=== PATIENT | female | born 1975 | race Caucasian/White ===

== ENCOUNTER 2017-12-21 06:19 | Day surgery (SDC) | payer MEDICARE, MEDICAID ==
[~2017-12-21 06:19] MED LIST: Acetaminophen TAB* 325 MG PO PRN; Buffered Lidocaine 0.9% SYRIN* 5 ML/SYR SYRINGE INTRADERM ONE
[2017-12-21] MEDS ORDERED: Lidocaine 1% INJ* 10 MG/ML 30 ML SDV ONE (07:15)
[2017-12-21] MEDS ORDERED: Levalbuterol 0.63MG/3ML NEB* UNIT OF USE INH ONE (07:16)
[2017-12-21] MEDS ORDERED: Propofol* 10 MG/ML 20 ML BTL IV PUSH ONE (07:19)
[2017-12-21] MEDS ORDERED: Lidocaine 2% PF * 5 ML VIAL ONE (07:22)
[2017-12-21] MEDS ORDERED: Lidocaine 1%* 5 ML VIAL ONE (07:27)
[2017-12-21] MEDS ORDERED: Naloxone* 0.4 MG/ML 1 ML VIAL IV PRN (08:00)
[2017-12-21 08:24] VITALS: BP 134/91
--- NOTE | 2017-12-22 02:37 | OP ---
DATE OF OPERATION: 12/21/17 [facility] DATE OF : 73 SURGEON: Heather Guo MD [facility]SA COORDINATOR: GUSTAVO Moura ANESTHESIA: Local MAC. PRE-OP DIAGNOSIS: Left carpal tunnel syndrome. POST-OP DIAGNOSIS: Left carpal tunnel syndrome. OPERATIVE PROCEDURE: Left carpal tunnel release. ESTIMATED BLOOD LOSS: Zero. TOURNIQUET TIME: About 10 minutes. INDICATIONS FOR PROCEDURE: Tonie is a 42-year-old female with numbness and tingling in the median nerve distribution of her left hand. She presents for left carpal tunnel release. DESCRIPTION OF PROCEDURE: The patient was brought to the operating room, was given a sedation anesthetic and a local infiltration of 10 cc of 1% plain lidocaine in the palm of her left hand. The skin of her left hand and forearm was prepped and draped in the usual sterile fashion. The hand and forearm were exsanguinated and the tourniquet elevated to 250 mmHg. A longitudinal incision was made in the palm in line with the ring finger. We dissected sharply through the subcutaneous tissue down to the transverse carpal ligament. The ligament was divided sharply with a knife and then more proximally with the scissors. The nerve was dissected free from the surrounding tissue and there was an area of moderate compression at the mid portion of the ligament. The wound was irrigated and the skin edges were re- approximated with 4-0 nylon suture. The wound was dressed with Xeroform, 4x4, Webril, and an Ravi wrap. The patient tolerated the procedure well and was brought to the recovery room in good condition. [id number]/[facility] #: [id number] [facility] MED[facility] CENTERDeven
== END 2017-12-21 08:39 | disposition home or self-care (01) ==
LOC: OREAST 06:19
PROVIDERS: ATTEND Orthopaedic Surgery
DX: G56.02 Carpal tunnel syndrome, left upper limb (principal); I10 Essential (primary) hypertension; J44.9 Chronic obstructive pulmonary disease, unspecified; Z72.0 Tobacco use; G47.33 Obstructive sleep apnea (adult) (pediatric); Z95.2 Presence of prosthetic heart valve; I27.20 Pulmonary hypertension, unspecified
CPT/HCPCS: 81025; J2704

== ENCOUNTER 2018-02-15 06:49 | Day surgery (SDC) | payer MEDICARE, MEDICAID ==
--- NOTE | 2018-02-03 08:31 | HP ---
PREOP HISTORY AND PHYSICAL: DATE OF ADMISSION: 02/15/18 CHIEF COMPLAINT: Numbness and tingling in the right hand. HISTORY OF PRESENT ILLNESS: Tonie is a 42-year-old female, who has numbness and tingling in her right hand for several weeks. She has had a successful nerve decompression of the left, presents now for the same on the right. The ulnar nerve is compressed at the elbow and the wrist and the median nerve compressed at the wrist. She does not get any relief from medication or bracing. She rates her pain as 8/10. PAST MEDICAL HISTORY: Positive for hypertension, heart disease, COPD, asthma, arthritis, depression, anxiety, history of alcohol addiction. PAST SURGICAL HISTORY: Heart valve repair, left ankle reconstruction, wrist surgery, and ulnar nerve and median nerve release on the left side. FAMILY HISTORY: Heart disease and cancer. SOCIAL HISTORY: She lives with her spouse, is currently on disability. She smokes a pack of cigarettes a day for 30 years. She admits to drinking a 12 pack of beer per day. REVIEW OF SYSTEMS: She has a review of systems positive for shortness of breath due to COPD, chronic low back pain, history of fracture, weakness, depression and anxiety. PHYSICAL EXAMINATION GENERAL: She is a 42-year-old woman, in minimal distress at rest. VITAL SIGNS: Her height is 64 inches, weight is 220 pounds. Pulse is 92, respirations are 18. HEENT: She has good range of motion of her neck without pain. No masses are palpated. Her eye movements are concentric. LUNGS: Clear to auscultation today. Good inspiratory effort. No wheezing. CARDIAC: Regular rate and rhythm without murmur. PERIPHERAL VASCULAR: She has palpable pulses and no peripheral edema. EXTREMITIES: She has decreased sensation in the median and ulnar nerve distribution of her right hand. Positive Tinel sign of the ulnar nerve at the wrist and the elbow as well as the median nerve at the wrist. NEUROLOGICAL: She is alert and oriented without focal deficit. IMPRESSION: Carpal tunnel syndrome and ulnar nerve compression of the right elbow and wrist. PLAN: Plan is for right carpal tunnel release and ulnar nerve decompression of the wrist as well as an ulnar nerve decompression of the right elbow. The surgical procedure, risks and benefits were explained to the patient today and she agrees to proceed. I will see her back in followup approximately 10 days postop. [id number]/[facility] #: [id number] IDALIA
[~2018-02-15 06:49] MED LIST changes: -Acetaminophen TAB* 325 MG PO PRN; +Dexamethasone IV* 4 MG/ML 1 ML (4 MG) IV SLOW PU ONE; +Dexamethasone TAB* 4 MG ONE; +DiMENhydriNATE IV* 50 MG/ML VIAL IV PUSH PRN; +Famotidine IV* 10 MG/ML 2 ML (20 mg) IV ONE; +Famotidine IV* 10 MG/ML 2 ML (20 mg) ONE; +Levalbuterol 0.63MG/3ML NEB* UNIT OF USE INH ONE; +Naloxone* 0.4 MG/ML 1 ML VIAL IV PRN; +Ondansetron ODT TAB* 4 MG ONE; +Ondansetron TAB* 4 MG PO ONE; +PROCHLORPERAZINE INJ 5 MG/ML 2 ML VIAL IV PRN; +fentaNYL* 50 MCG/ML 2 ML VIAL (100 MCG VIAL) IV PRN; +oxyCODONE/Acetamin 5/325 MG* TAB PO PRN
[2018-02-15] MEDS ORDERED: ceFAZolin 2 GM PREMIX in ORs 2 GM/50 ML BAG IVPB ONE (07:02)
[2018-02-15] MEDS ORDERED: Dexamethasone IV* 4 MG/ML 1 ML (4 MG) ONE (07:30)
[2018-02-15] MEDS ORDERED: fentaNYL* 50 MCG/ML 2 ML VIAL (100 MCG VIAL) ONE (07:47)
[2018-02-15] MEDS ORDERED: Midazolam* 1 MG/ML 5 ML VIAL (5 MG) ONE (07:47)
[2018-02-15] MEDS ORDERED: KETAMINE HCL* 50 MG/ML 10 ML VIAL ONE (07:47)
[2018-02-15] MEDS ORDERED: Lidocaine 1% INJ* 10 MG/ML 30 ML SDV ONE (08:01)
[2018-02-15] MEDS ORDERED: Propofol* 10 MG/ML 20 ML BTL ONE (08:57)
[2018-02-15] MEDS ORDERED: Lidocaine 2% PF * 5 ML VIAL ONE (08:57)
[2018-02-15 09:55] VITALS: BP 161/96
--- NOTE | 2018-02-15 15:43 | OP ---
DATE OF OPERATION: 02/15/18 - [facility] DATE OF : 73 SURGEON: Heather Guo MD TIN TIE MACHINE OPERATOR AUTOMATIC: Preeti Adams. ANESTHESIA: Local MAC. PRE-OP DIAGNOSES: 1. Ulnar nerve compression at the right elbow. 2. Median nerve compression at the right wrist. POST-OP DIAGNOSES: 1. Ulnar nerve compression at the right elbow. 2. Median nerve compression at the right wrist OPERATIVE PROCEDURE: Right carpal tunnel release and ulnar nerve decompression at the right elbow. ESTIMATED BLOOD LOSS: Zero. TOURNIQUET TIME: About 30 minutes. INDICATIONS: Theodore is a 42-year-old female with numbness and tingling in the median and ulnar nerve distribution of her right hand. She has positive Tinel' s sign of the ulnar nerve at the elbow and a positive Tinel's sign of the median nerve at the wrist. She presents for median nerve decompression at the wrist and ulnar nerve decompression at the elbow. DESCRIPTION OF PROCEDURE: The patient was brought to the operating room, was given a sedation anesthetic and local infiltration of 10 cc of 1% plain lidocaine in the right hand and a 15 cc of 1% plain lidocaine into the right elbow. Skin of her right upper extremity was prepped and draped in usual sterile fashion. The hand and forearm were exsanguinated and the tourniquet elevated to 250 mmHg. A curvilinear incision was made centered between the medial epicondyle and the tip of the olecranon process dissected bluntly through the subcutaneous tissue down to the ulnar nerve proximal to the elbow, was carefully dissected out proximally, the medial and brachial cutaneous nerve was dissected out distally and preserved by retraction by the assistant production manager , Preeti Adams. The nerve was then completely released through the cubital tunnel and into the FCU fascia and muscle. The superficial and deep fascia of the FCU muscles were both released. The nerve was in good condition. The wound was irrigated and subcutaneous tissue closed with 3-0 Polysorb and the skin with skin amrik. Next, a longitudinal incision was made in the palm in lined with the ring finger. We dissected sharply through the subcutaneous tissue down to the transverse carpal ligament. The ligament was divided sharply with a knife and then more proximally with the scissors. The nerve was dissected free from surrounding tissue and there was an area of moderate compression at the midportion of the ligament. The wound was irrigated and skin edges reapproximated with 4-0 nylon suture. The wound was dressed with Xeroform, 4x4, Webril, and an Ravi wrap. The patient tolerated the procedure well. She was brought to the recovery room in good condition. [id number]/[facility] #: [id number] IDALIA
== END 2018-02-15 09:50 | disposition home or self-care (01) ==
LOC: OREAST 06:49
PROVIDERS: ATTEND Orthopaedic Surgery
DX: G56.21 Lesion of ulnar nerve, right upper limb (principal); G56.01 Carpal tunnel syndrome, right upper limb; I11.9 Hypertensive heart disease without heart failure; J45.909 Unspecified asthma, uncomplicated; F17.210 Nicotine dependence, cigarettes, uncomplicated
CPT/HCPCS: A9270-GY; J0690; J1100; J2250; J2704; J3010; J8540

== ENCOUNTER 2020-09-19 11:33 | Observation (INO) ==
[~2020-09-19 11:33] MED LIST changes: -Buffered Lidocaine 0.9% SYRIN* 5 ML/SYR SYRINGE INTRADERM ONE; +Buffered Lidocaine 1% SYRIN 1 ml INTRADERM ONE; -Dexamethasone IV* 4 MG/ML 1 ML (4 MG) IV SLOW PU ONE; -Dexamethasone TAB* 4 MG ONE; -DiMENhydriNATE IV* 50 MG/ML VIAL IV PUSH PRN; +Famotidine IV 10 MG/ML 2 ml VIAL (20 mg) IV ONE; -Famotidine IV* 10 MG/ML 2 ML (20 mg) IV ONE; -Famotidine IV* 10 MG/ML 2 ML (20 mg) ONE; +Lactated Ringers 1000 ml BAG 1,000 ML IV SCH; -Levalbuterol 0.63MG/3ML NEB* UNIT OF USE INH ONE; -Naloxone* 0.4 MG/ML 1 ML VIAL IV PRN; -Ondansetron ODT TAB* 4 MG ONE; -Ondansetron TAB* 4 MG PO ONE; -PROCHLORPERAZINE INJ 5 MG/ML 2 ML VIAL IV PRN; -fentaNYL* 50 MCG/ML 2 ML VIAL (100 MCG VIAL) IV PRN; -oxyCODONE/Acetamin 5/325 MG* TAB PO PRN
[2020-09-19] MEDS ORDERED: Famotidine IV 10 MG/ML 2 ml VIAL (20 mg) ONE (11:56)
[2020-09-19] MEDS ORDERED: ceFAZolin 2 GM in NS PREMIX 2 GM/100 ML BAG IVPB ONE (11:56)
[2020-09-19] MEDS ORDERED: Bupivacaine 0.5% SDV PF 30ML VIAL ONE (12:17)
[2020-09-19] MEDS ORDERED: Midazolam 5 mg/5 ml VIAL 1 mg/ml 5 ml VIAL (5 mg) ONE (12:55)
[2020-09-19] MEDS ORDERED: fentaNYL 100 mcg/2 ml 50 MCG/ML VIAL ONE ×2 (12:55→14:58)
[2020-09-19] MEDS ORDERED: Ondansetron 4 mg VIAL 2 MG/ML 2 ml VIAL ONE (12:59)
[2020-09-19] MEDS ORDERED: Phenylephrine IV 10 MG/ML 1 ml VIAL ONE (13:39)
[2020-09-19] MEDS ORDERED: Lidocaine 2% PF 5 ML VIAL ONE (13:39)
[2020-09-19] MEDS ORDERED: Dexamethasone IV 4 MG/ML VIAL 1 ml VIAL ONE (13:39)
[2020-09-19] MEDS ORDERED: Propofol 10 MG/ML 20 ML BTL ONE (13:39)
[2020-09-19] MEDS ORDERED: Succinylcholine 200 mg VIAL 20 mg/ml 10 ml VIAL (200 mg) ONE (13:56)
[2020-09-19] MEDS ORDERED: Flumazenil 0.5 mg/5 ml 0.1 MG/ML 5 ml VIAL ONE (14:32)
[2020-09-19] MEDS: fentaNYL 100 mcg/2 ml 50 MCG/ML VIAL IV PRN ×4 (15:00→15:42)
[2020-09-19] MEDS ORDERED: Naloxone 0.4 mg VIAL 0.4 mg/ml 1 ml VIAL IV PRN (15:03)
[2020-09-19] MEDS ORDERED: Levalbuterol 1.25MG/0.5ML NEB.SOL INH PRN (15:03)
[2020-09-19] MEDS ORDERED: Ondansetron 4 mg VIAL 2 MG/ML 2 ml VIAL IV PRN ×2 (15:03→15:21)
[2020-09-19] MEDS ORDERED: DiMENhydriNATE IV 50 mg/ml 1 ml VIAL IV PUSH PRN (15:03)
[2020-09-19] MEDS ORDERED: Lactulose 30 ml UDC PO PRN (15:21)
[2020-09-19] MEDS ORDERED: Magnesium Hydroxide LIQ 30 ML UDC PO PRN (15:21)
[2020-09-19] MEDS ORDERED: diPHENhydraMINE 25 mg TAB PO PRN (15:21)
[2020-09-19] MEDS ORDERED: diPHENhydraMINE IV 50 MG/ML 1 ml VIAL (BENADRYL) IV PRN (15:21)
[2020-09-19] MEDS ORDERED: Ondansetron ODT 4 mg TAB 4 MG TAB PO PRN (15:21)
[2020-09-19] MEDS ORDERED: Morphine 2 MG/ML SYRINGE IV PRN (15:33)
[2020-09-19] MEDS ORDERED: Albuterol 2.5mg/3 ml (0.083%) NEB.SOLN INH PRN (15:36)
[2020-09-19] MEDS ORDERED: Albuterol HFA INHALER 8 gm MDI INH PRN (15:36)
[2020-09-19] MEDS ORDERED: Lactated Ringers 1000 ml BAG 1,000 ML IV SCH (16:00)
[2020-09-19 17:34] LABS: Hematocrit 43 % (35-47); Hemoglobin 14.2 g/dL (12.0-16.0); Mean Corpuscular HGB Conc 33 g/dL (31-36); Mean Corpuscular Hemoglobin 31 pg (27-31); Mean Corpuscular Volume 94 fL (80-97); Mean Platelet Volume 9.5 fL (7.4-10.4); Platelet Count 183 10^3/uL (150-450); Red Blood Count 4.54 10^6 /uL (3.70-4.87); Red Cell Distribution Width 15 % (10-15); White Blood Count 12.8 10^3/uL (3.5-10.8)
[2020-09-19] MEDS ORDERED: Mometasone 220 MCG MDI INH SCH (21:00)
[2020-09-19] MEDS: ceFAZolin 1 GM ADVAN 1 GM in NS 0.9% 50 ML 50 ML IVPB SCH (22:32)
[2020-09-19] MEDS: Magnesium Hydroxide LIQ 30 ML UDC PO SCH (22:32)
[2020-09-20] MEDS: ceFAZolin 1 GM ADVAN 1 GM in NS 0.9% 50 ML 50 ML IVPB SCH ×2 (05:16→13:47)
[2020-09-20 06:26] LABS: ABS Lymphocytes 0.8 10^3/ul (1.0-4.8); ABS Monocytes 0.9 10^3/ul (0-0.8); ABS Neutrophils 9.8 10^3/ul (1.5-7.7); Hematocrit 41 % (35-47); Hemoglobin 13.7 g/dL (12.0-16.0); Lymphocyte % 7.3 %; Mean Corpuscular HGB Conc 33 g/dL (31-36); Mean Corpuscular Hemoglobin 31 pg (27-31); Mean Corpuscular Volume 94 fL (80-97); Mean Platelet Volume 9.7 fL (7.4-10.4); Platelet Count 170 10^3/uL (150-450); Red Blood Count 4.39 10^6 /uL (3.70-4.87); Red Cell Distribution Width 15 % (10-15); White Blood Count 11.5 10^3/uL (3.5-10.8)
[2020-09-20 06:36] LABS: C Reactive Protein 5.04 mg/L (<8.01); EGFR African American 97.7 (>60); EGFR Non-African American 80.7 (>60); Magnesium 1.7 mg/dL (1.9-2.7); Potassium 4.6 mmol/L (3.5-5.0)
[2020-09-20] MEDS: Magnesium Hydroxide LIQ 30 ML UDC PO SCH (08:29)
[2020-09-20] MEDS ORDERED: Vitamin THERAPEUTIC TAB PO SCH (09:00)
[2020-09-20] MEDS ORDERED: DULoxetine DR 60 mg CAP PO SCH (09:00)
[2020-09-20] MEDS ORDERED: Aspirin EC 81 mg TAB.EC (enteric coated) PO SCH (09:00)
[2020-09-20] MEDS ORDERED: SPIRIVA Respimat (tiotropium) 2.5 mcg/inh Inhaler INH SCH (09:00)
[2020-09-20 11:41] VITALS: BP 122/69
[2020-09-20] MEDS ORDERED: Enoxaparin 40 MG/0.4 ML SYR SUBCUT SCH (12:00)
== END 2020-09-20 15:17 | disposition home or self-care (01) ==
LOC: OR 11:33 → SSU 11:33
PROVIDERS: ADMIT Orthopaedic Surgery; ATTEND Orthopaedic Surgery